=== PATIENT | male | born 1950 | race Caucasian/White ===

== ENCOUNTER 2022-12-01 09:27 | Emergency (ER) | payer OTHER, BC ==
--- NOTE | 2022-12-01 09:45 | ER ---
Nurse's Notes [facility] Name: Francis Moon Age: 72 yrs Sex: Male : 1950 Arrival Date: 12/01/2022 Time: 09:27 Bed 8 Private MD: Diagnosis: Strain of muscle, fascia and tendon of lower back Presentation: 12/01 09:36 Chief complaint: Patient states: Low back pain since yesterday, getting worse. Took nj1 tylenol with no relief. Denies known injury. Coronavirus screen: Vaccine status: Patient reports being unvaccinated. Ebola Screen: Patient denies travel to an Ebola-affected area in the 21 days before illness onset. Initial Sepsis Screen: Does the patient meet any 2 criteria? No. Patient's initial sepsis screen is negative. Does the patient have a suspected source of infection? No. Patient's initial sepsis screen is negative. Risk Assessment: Do you want to hurt yourself or someone else? Patient reports no desire to harm self or others. Onset of symptoms was November 30, 2022. 09:36 Method Of Arrival: Ambulatory nj 09:36 Acuity: BRETT 3 nj1 Historical: - Allergies: 09:38 PENICILLINS; nj1 - PMHx: 09:38 None; nj1 - PSHx: 09:38 Prostate removal; nj1 - Immunization history:: Client reports having NOT received the Covid vaccine. - Social history:: Smoking status: Patient reports the use of cigarette tobacco products, cigars. Screenin:45 [facility] ED Fall Risk Assessment (Adult) History of falling in the last 3 months, ap3 including since admission No falls in past 3 months (0 pts). Abuse screen: Denies threats or abuse. Nutritional screening: No deficits noted. Tuberculosis screening: No symptoms or risk factors identified. Assessment: 09:45 General: Appears uncomfortable, Behavior is calm, cooperative, appropriate for age. ap3 Pain: Complains of pain in low back area Pain began 1 day ago. Neuro: Level of Consciousness is awake, alert, obeys commands, Oriented to person, place, time, situation. Cardiovascular: Patient's skin is warm and dry. Respiratory: Airway is patent Respiratory effort is even, unlabored, Respiratory pattern is regular, symmetrical. Vital Signs: 09:36 BP 156 / 86; Pulse 77; Resp 18; Temp 98.1(O); Pulse Ox 100% ; Weight 90.72 kg; Height 5 nj1 ft. 9 in. ; Pain 8; 09:36 Body Mass Index 29.53 (90.72 kg, 175.26 cm) nj1 09:36 Pain Scale: Adult sc1 ED Course: 09:31 Patient arrived in ED. ts1 09:38 Triage completed. nj1 09:39 Arm band placed on left wrist. nj1 09:41 Shena Vargas PA-C is PHCP. sb4 09:41 Jorge Bolanos MD is Attending Physician. sb4 09:41 Denisse Hyatt, RN is Primary Nurse. ap3 09:44 Desmond Erickson MD is Referral Physician. sb4 09:45 No provider procedures requiring assistance completed. Patient did not have IV access ap3 during this emergency room visit. 09:46 Patient has correct armband on for positive identification. Bed in low position. Call ap3 light in reach. Side rails up X 1. Pulse ox on. NIBP on. Door closed. Noise minimized. Administered Medications: 09:51 Drug: Ketorolac IM 30 mg Route: IM; Site: right gluteus; aa5 10:14 Follow up: Response: No adverse reaction ap3 09:52 Drug: Dexamethasone IM 10 mg Route: IM; Site: left gluteus; aa5 10:14 Follow up: Response: No adverse reaction ap3 Medication: 09:46 VIS not applicable for this client. ap3 Outcome: 09:44 Discharge ordered by . sb4 10:13 Discharged to home ambulatory. ap3 10:13 Condition: good 10:13 Discharge instructions given to patient, Instructed on discharge instructions, follow up and referral plans. medication usage, Demonstrated understanding of instructions, follow-up care, medications, Prescriptions given X 2. 10:14 Patient left the ED. ap3 Signatures: Charla Dodson RN RN aa5 Denisse Hyatt RN RN ap3 Shena Vargas PA-C PA-C sb4 Nancy Regalado RN RN nj1 Yanci Feliciano, MAKSIM PAS ts1
--- NOTE | 2022-12-01 09:45 | EDPHYS ---
Physician Documentation [facility] Name: Francis Moon Age: 72 yrs Sex: Male : 1950 Arrival Date: 12/01/2022 Time: 09:27 Bed 8 Private MD: Jorge Roberts HPI: 12/01 09:54 This 72 yrs old Male presents to ER via Ambulatory with complaints of Back Pain. sb4 09:54 The patient presents with pain that is acute, and an injury. The symptoms are located sb4 in the low back. Onset: The symptoms/episode began/occurred yesterday. Associated signs and symptoms: The patient has no apparent associated signs or symptoms. The problem was sustained when bending over, from twisting. Modifying factors: The patient symptoms are alleviated by remaining still, the patient symptoms are aggravated by any movement, bending, lifting. The patient has not experienced similar symptoms in the past. 09:55 Patient reports injuring his lower back yesterday doing yard work. He was bending and sb4 twisting in an awkward position. has tried taking Tylenol without any relief.. Historical: - Allergies: 09:38 PENICILLINS; nj1 - PMHx: 09:38 None; nj1 - PSHx: 09:38 Prostate removal; nj1 - Immunization history:: Client reports having NOT received the Covid vaccine. - Social history:: Smoking status: Patient reports the use of cigarette tobacco products, cigars. ROS: 09:55 Constitutional: Negative for fever, chills, and weight loss, Eyes: Negative for injury, sb4 pain, redness, and discharge, Cardiovascular: Negative for chest pain, palpitations, and edema, Respiratory: Negative for shortness of breath, cough, wheezing, and pleuritic chest pain, Abdomen/GI: Negative for abdominal pain, nausea, vomiting, diarrhea, and constipation, Skin: Negative for injury, rash, and discoloration, Neuro: Negative for headache, weakness, numbness, tingling, and seizure. 09:55 Back: Positive for injury or acute deformity, pain with movement, Negative for Exam: 09:55 Constitutional: This is a well developed, well nourished patient who is awake, alert, sb4 and in no acute distress. Head/Face: Normocephalic, atraumatic. Eyes: Extra-ocular motions intact. Periorbital areas with no swelling, redness, or edema. Skin: Warm, dry with normal turgor. Normal color with no rashes, no lesions, and no evidence of cellulitis. 09:55 Back: pain, that is moderate, ROM is painful, with all movement, normal spinal alignment noted, CVA tenderness, is absent, vertebral tenderness, is not appreciated, muscle spasm, is appreciated in the low back area. 09:55 Neuro: Exam negative for acute changes, focal neuro deficits, motor deficits, sensory deficits, cerebellar deficits, altered mental status, gait abnormality, paresthesias. Vital Signs: 09:36 BP 156 / 86; Pulse 77; Resp 18; Temp 98.1(O); Pulse Ox 100% ; Weight 90.72 kg; Height 5 nj1 ft. 9 in. ; Pain 8/10; 09:36 Body Mass Index 29.53 (90.72 kg, 175.26 cm) nj1 09:36 Pain Scale: Adult nj1 MDM: 09:41 Patient medically screened. sb4 09:55 Differential diagnosis: Fracture Neoplasm Osteoarthritis Osteoporosis ruptured disc, sb4 spinal injury, sprain, vertebral fracture. Data reviewed: vital signs, nurses notes. Test considered but Not performed: X-ray: not indicated, no traumatic injury, likely muscular strain. 09:55 Counseling: I had a detailed discussion with the patient and/or guardian regarding: the sb4 historical points, exam findings, and any diagnostic results supporting the discharge/admit diagnosis, to return to the emergency department if symptoms worsen or persist or if there are any questions or concerns that arise at home. Administered Medications: 09:51 Drug: Ketorolac IM 30 mg Route: IM; Site: right gluteus; aa5 10:14 Follow up: Response: No adverse reaction ap3 09:52 Drug: Dexamethasone IM 10 mg Route: IM; Site: left gluteus; aa5 10:14 Follow up: Response: No adverse reaction ap3 Disposition Summary: 12/01/22 09:44 Discharge Ordered Location: Home sb4 Problem: new sb4 Symptoms: have improved sb4 Condition: Stable sb4 Diagnosis - Strain of muscle, fascia and tendon of lower back sb4 Followup: sb4 - With: Desmond Erickson MD - When: 7 - 10 days - Reason: If symptoms return, Further diagnostic work-up, Recheck today's complaints, Re-evaluation by your physician Discharge Instructions: - Discharge Summary Sheet sb4 - Low Back Sprain or Strain Rehab sb4 Forms: - Medication Reconciliation Form sb4 - Thank You Letter sb4 - Antibiotic Education sb4 - Prescription Opioid Use sb4 - [email or web address] sb4 Prescriptions: - Cyclobenzaprine 10 mg Oral Tablet - take 1 tablet by ORAL route every 8 hours As needed; 20 tablet; Refills: 0, sb4 Product Selection Permitted - Medrol (Jair) 4 mg Oral Tablets, Dose Pack - take 1 tablet by ORAL route as directed - follow package instructions; 1 sb4 packet; Refills: 0, Product Selection Permitted Signatures: Charla Dodson, RN RN aa5 Shena Vargas PA-C PA-C sb4 Nancy Regalado RN RN nj1 Denisse Hyatt RN ap3
[2022-12-01] MEDS ORDERED: dexAMETHasone 10 MG/ML VIAL ONE (09:54)
[2022-12-01] MEDS ORDERED: KETOROLAC 30 MG/ML INJ ONE (09:54)
[2022-12-01 10:23] VITALS: BP 156/86; TEMP 98.1; O2SAT 100
== END 2022-12-01 10:14 | disposition home or self-care (01) ==
LOC: ER 09:27
DX: S39.012A Strain of muscle, fascia and tendon of lower back, initial encounter (principal); X50.1XXA Overexertion from prolonged static or awkward postures, initial encounter; Y93.H2 Activity, gardening and landscaping; Y92.017 Garden or yard in single-family (private) house as the place of occurrence of the external cause; Y99.8 Other external cause status; Z88.0 Allergy status to penicillin; F17.210 Nicotine dependence, cigarettes, uncomplicated
CPT/HCPCS: 96372; 99284; J1100